=== PATIENT | male | born 1965 ===

== ENCOUNTER 2019-02-13 15:21 | Outpatient (REF) | payer BC, SELFPAY ==
[2019-02-13 22:26] LABS: Calculated LDL 137 mg/dL; Cholesterol 216 mg/dL (50-200); HDL Cholesterol 38 mg/dL (40-60); Triglyceride 206 mg/dL (30-150)
[2019-02-15 10:32] LABS: Hepatitis C Ab w Rflx HCV PCR Negative (NEGAT)
== END 2019-02-13 15:41 ==
LOC: NCHCN 15:21
PROVIDERS: PCP Registered Nurse; Visit Provider Registered Nurse
DX: Z00.00 Encounter for general adult medical examination without abnormal findings (principal); E66.9 Obesity, unspecified; Z13.220 Encounter for screening for lipoid disorders; Z11.59 Encounter for screening for other viral diseases
CPT/HCPCS: 80061; 83721; 86803